=== PATIENT | male | born 1975 | race Caucasian/White ===

== ENCOUNTER 2021-01-22 10:39 | Emergency (ER) | payer OTHER ==
[~2021-01-22 10:39] MED LIST: IBU800 MG PO; IBUPROFEN600 MG PO
== END 2021-01-22 12:35 | disposition home or self-care (01) ==
LOC: ER1 10:39
DX: H61.23 Impacted cerumen, bilateral (principal); F17.210 Nicotine dependence, cigarettes, uncomplicated; Z88.0 Allergy status to penicillin
CPT/HCPCS: 69210; 99282

== ENCOUNTER 2022-02-19 14:10 | Emergency (ER) | payer SELFPAY ==
[~2022-02-19 14:10] MED LIST changes: +METRONIDAZOLE500 MG PO; +PHENERGAN 25 MG25 M1 PO; +ZOFRAN ODT 4 MG4 MG PO
[2022-02-19] MEDS ORDERED: IBUPROFEN600 MG PO (15:08)
[2022-02-19] MEDS ORDERED: BACTROBAN OINT22 GM EXT (15:08)
== END 2022-02-19 15:49 | disposition home or self-care (01) ==
LOC: ER1 14:10
DX: S61.012A Laceration without foreign body of left thumb without damage to nail, initial encounter (principal); F17.210 Nicotine dependence, cigarettes, uncomplicated; W26.8XXA Contact with other sharp object(s), not elsewhere classified, initial encounter; Y92.009 Unspecified place in unspecified non-institutional (private) residence as the place of occurrence of the external cause
CPT/HCPCS: 12001; 99282